=== PATIENT | male | born 1980 | race Caucasian/White ===

== ENCOUNTER 2024-07-25 15:03 | Emergency (ER) | payer MEDICAID, SELFPAY ==
[2024-07-25] VITALS (7 sets, daily range): BP systolic 151–166; BP diastolic 88–104; PULSE 57–77; RESP 14–18; TEMP 36.7–37; O2SAT 96–98; BMI 30.9
--- NOTE | ~2024-07-25 | CT_ITS ---
EXAMINATION: CT ABDOMEN AND PELVIS WITH CONTRAST CLINICAL INFORMATION: Right upper quadrant abdominal wall mass COMPARISON: None TECHNIQUE: Multidetector volumetric imaging was performed from the superior aspect of the liver through the pubic symphysis with intravenous contrast. A total of 85 mL of Omnipaque 350 was utilized for the study. Sagittal and coronal reformatted images were obtained on the technologist's workstation. This CT examination was performed using dose optimization techniques as appropriate, variously including the following: *Automated exposure control *Adjustment of mA and/or kV according to patient size (this includes techniques or standardized protocols for targeted exams where dose is matched to indication/reason for exam; i.e. extremities or head) *Use of iterative reconstruction technique DLP: 615 mGy-cm FINDINGS: LUNG BASES: The visualized lung bases are unremarkable. LIVER, GALLBLADDER, AND BILIARY TREE: The liver is normal in size, shape, and attenuation. A 4 mm cyst is noted in the left lobe of the liver. No concerning solid focal hepatic lesion or biliary ductal dilatation is present. The gallbladder is unremarkable with no evidence of radiopaque gallstones, gallbladder wall thickening, or obvious pericholecystic inflammatory changes. PANCREAS: Unremarkable. SPLEEN: Unremarkable. ADRENAL GLANDS: Unremarkable. KIDNEYS AND URETERS: The kidneys are normal in size, shape, and attenuation. No hydronephrosis, hydroureter, or calculi seen. No perinephric stranding. BLADDER: Unremarkable. GASTROINTESTINAL TRACT: The small and large bowel are unremarkable. The appendix is unremarkable. ABDOMINAL WALL: No significant hernia is appreciated. No abdominal wall mass is seen. LYMPH NODES: Normal. VASCULAR: Unremarkable. PELVIC VISCERA: Minimal prominence of the prostate. Seminal vesicles are normal. OSSEOUS STRUCTURES: Unremarkable. CT/CT abdomen pelvis w IV con IMPRESSION: There is no right upper quadrant abdominal wall mass seen. Fleischner guidelines were followed. Electronically signed by: Dragan Rodriguez MD 07/25/2024 07:30 PM [facility]
--- NOTE | ~2024-07-25 | US_ITS ---
EXAMINATION: US SCROTUM CLINICAL INFORMATION: Right scrotal pain and swelling.. COMPARISON: None available. TECHNIQUE: A sonogram of the scrotum was performed assessing tamez-scale appearance and color Doppler flow. Spectral Doppler analysis of the arterial and venous flow were performed in the testes bilaterally. FINDINGS: RIGHT: Right testicle measures 4.5 x 2.9 x 3.5 cm, volume 23.2 mL. No focal testicular parenchymal lesions are visualized. Spectral Doppler analysis of the arterial and venous flow is normal in the right testis. Right epididymal head is normal in size. A cyst at the epididymal head measures 0.5 x 0.4 x 0.4 cm. No right varicocele is seen. Moderate size simple right hydrocele. Right epididymal Doppler flow is normal. LEFT: Left testicle measures 5.1 x 2.2 x 3.0 cm, volume 17.7 mL. No focal testicular parenchymal lesions are visualized. Spectral Doppler analysis of the arterial and venous flow is normal in the left testis. Left epididymal head is normal in size. No left hydrocele or varicocele is seen. Left epididymal Doppler flow is normal. US/US scrotum IMPRESSION: Normal blood flow in both testicles on color and spectral Doppler. No evidence of orchitis or torsion. Moderate-sized simple right hydrocele. Small 0.5 cm right epididymal head cyst. Electronically signed by: Denis Cao MD 07/25/2024 10:41 PM [facility]
--- NOTE | ~2024-07-25 | XR_ITS ---
EXAMINATION: XR CHEST CLINICAL INFORMATION: cough, fever COMPARISON: None available. TECHNIQUE: 2 views of the chest were obtained. FINDINGS: No significant abnormality is noted involving the heart, lungs, mediastinum, bony thorax or soft tissues. XR/XR chest 2V IMPRESSION: Unremarkable examination. Electronically signed by: Shira Mathews MD 07/25/2024 03:57 PM [facility]
--- NOTE | ~2024-07-25 | US_ITS ---
EXAMINATION: US SCROTUM CLINICAL INFORMATION: Right scrotal pain and swelling.. COMPARISON: None available. TECHNIQUE: A sonogram of the scrotum was performed assessing tamez-scale appearance and color Doppler flow. Spectral Doppler analysis of the arterial and venous flow were performed in the testes bilaterally. FINDINGS: RIGHT: Right testicle measures 4.5 x 2.9 x 3.5 cm, volume 23.2 mL. No focal testicular parenchymal lesions are visualized. Spectral Doppler analysis of the arterial and venous flow is normal in the right testis. Right epididymal head is normal in size. A cyst at the epididymal head measures 0.5 x 0.4 x 0.4 cm. No right varicocele is seen. Moderate size simple right hydrocele. Right epididymal Doppler flow is normal. LEFT: Left testicle measures 5.1 x 2.2 x 3.0 cm, volume 17.7 mL. No focal testicular parenchymal lesions are visualized. Spectral Doppler analysis of the arterial and venous flow is normal in the left testis. Left epididymal head is normal in size. No left hydrocele or varicocele is seen. Left epididymal Doppler flow is normal. US/US scrotum doppler IMPRESSION: Normal blood flow in both testicles on color and spectral Doppler. No evidence of orchitis or torsion. Moderate-sized simple right hydrocele. Small 0.5 cm right epididymal head cyst. Electronically signed by: Denis Cao MD 07/25/2024 10:41 PM [facility]
--- NOTE | 2024-07-25 15:16 | ED.ABDPAIN ---
HPI - Abdominal Pain General Chief Complaint: Upper Respiratory Symptoms Stated Complaint: Abd pain-sick for a few days Time Seen by Provider: 07/25/24 17:28 History of Present Illness ED Provider: Abelino SANCHEZ narrative: The patient is an ordinarily healthy 43-year-old male. He is from [place]. By profession he is a home sales service professional. He is currently touring in this area. The patient has 2 complaints. One complaint is that he has felt ill with respiratory symptoms for about 4 days. He describes a sense of nasal congestion and green nasal discharge together with a cough and fatigue. He does not know if he has had a fever but he says he has been very sweaty at times. Additionally the patient says that he has had a lump that he can feel in his right upper abdomen that comes and goes and is quite painful when it comes. He says he 1st experienced this about 6 months ago. He says that he feels the lump intermittently. It is associated with significant pain and discomfort when it comes. He has spoken to some doctors about it who said it did not sound like a hernia because it does not seem to be associated with straining or lifting. However the patient says that the frequency with which he has the pain in the sense of a lump in his right upper abdomen is increasing so that is now occurring several times a day and interferes with his daily events. The patient later disclosed that he has had a swollen right testicle for several months and that he is worried that he has testicular cancer but has been to anxious to discuss it with the doctor or have it evaluated. The patient lives in [place] and has no primary care doctor. Related Data Previous Rx's ?Medication ?Instructions ?Recorded doxycycline monohydrate 100 mg 100 mg PO BID #14 caps 07/25/24 capsule tramadol 50 mg tablet 50 mg PO Q6H PRN pain #14 tabs 07/25/24 Allergies Allergy/AdvReac Type Severity Reaction Status Date / Time No Known Allergies Allergy Verified 07/25/24 15:17 Review of Systems Review of Systems Yes all other systems are reviewed and are negative [facility] Social History Social History Alcohol intake: current Alcohol intake frequency: a few times a month Smoked in Last 30 Days: No Use of substances other than those prescribed or required for medical reasons: Yes Substance Use Type: Marijuana Substance Use Frequency: Chronic Longstanding Advance Directives: No Advance Directives Information Provided: No Physical Exam ED Vital Signs: Vital Signs - 24 hr 07/25/24 15:13 07/25/24 18:25 07/25/24 18:30 Temperature 98.1 F 98.6 F Pulse Rate 77 71 Respiratory Rate 16 14 Blood Pressure 152/93 H 166/104 H Pulse Oximetry 97 97 96 Oxygen Delivery Method Room Air Room Air Room Air 07/25/24 19:04 07/25/24 20:08 07/25/24 22:24 Temperature 98.3 F 98.6 F 98.4 F Pulse Rate 70 64 57 Respiratory Rate 16 18 Blood Pressure 151/94 H 165/95 H 159/88 H Pulse Oximetry 97 98 Oxygen Delivery Method Room Air 07/25/24 22:56 Temperature 98.4 F Pulse Rate 57 Respiratory Rate 16 Blood Pressure 159/88 H Pulse Oximetry Oxygen Delivery Method BMI result Body Mass Index 30.9 Const Other: The patient is awake and alert. He does not appear obviously ill. HENOK Head: Yes normal to inspection Face and sinus: Yes normal facial exam Mouth: Normal oral and palatal mucosa present and moist mucous membranes Throat: Yes posterior oropharynx normal Eyes General: appearance normal, both eyes and all related structures Neck Neck: Yes no lymphadenopathy Resp Effort & Inspection: normal respiratory effort Auscultation: clear to auscultation bilaterally Cardio Rate: regular rate Rhythm: regular rhythm Heart sounds: S1 normal heart sound present and S2 normal heart sound present GI Other: The abdomen is flat and soft. In the right upper quadrant felt that there was a nodule like mass that seemed to rest against the anterior aspect of the abdominal wall muscles. This felt to be about 2 cm x 1 cm in size. It was soft. I did not appreciate any hernia defect. The abdomen seemed otherwise benign and nontender. Other: The patient has a swollen right hemiscrotum. No particular tenderness. Skin Other: Skin is dry and unremarkable Neuro Other: The patient is awake and alert with a normal mental status. Cranial nerves are intact. He moves his extremities normally. He seems grossly neurologically intact. Extrem Other: No peripheral edema Course Course Course Narrative: This is a rapid medical exam. Defer additional HPI, ROS, PE to primary provider. 43 yo male with no known medical history presents to the ER with cough, fevers, chills, malaise for several days. Also concern for bump on his abdomen that comes and goes and is painful for several months. Will obtain labs, viral testing, chest x-ray ARNOLDO Nunez APRN Medical Decision Making Medical Decision Making [facility] Narrative: The patient initially seemed to have 2 chief complaints. One was respiratory symptoms suggestive of a possible respiratory infection. The 2nd complaint was a painful mass in the right upper abdomen that has been bothering him intermittently for several months and has been getting worse with more frequent episodes of pain. Later the patient also mentioned that he had a swollen right testicle that has been swollen for a few months and which he is very worried could represent cancer. The patient has a negative chest x-ray and unremarkable blood work. With regard to his respiratory symptoms he will prescribed doxycycline for possible sinusitis. With regard to the painful abdominal wall mass in his right upper abdomen a CT scan of the abdomen and pelvis did not identify any discrete mass. With regard to the patient's complaint of a right swollen hemiscrotum he has a hydrocele on the right testicle. Patient was advised to follow up with General surgery regarding the apparent abdominal wall mass which seems palpable to the touch but which was not evident on CT scan. He will likely be following up in [place]. He was given a disc of his CT scan. With regard to his right testicular hydrocele he was reassured he does not seem to have testicular cancer. He is advised to follow up with the urologist when he returns to [place]. In case he stays in this area he was given contact numbers for our General surgery office and our urology office. Lab Data 07/25/24 15:31 07/25/24 15:31 Labs: Lab Results 07/25/24 Range/Units 15:31 WBC 8.4 (4.8-10.8) X10*3/uL RBC 4.92 (4.60-5.80) X10*6/uL Hgb 16.2 (14.0-18.0) g/dl Hct 45.2 (42.0-52.0) % MCV 91.9 (80.0-98.0) fL MCH 32.9 (27.0-33.0) pg MCHC 35.8 (31.0-36.0) g/dl RDW 12.0 (11.0-16.0) % Plt Count 274 (160-400) X10*3/uL MPV 10.7 (9.4-12.4) fL Immature Gran % (Auto) 0.2 (0.0-0.4) % Neut % (Auto) 59.8 (45-73) % Lymph % (Auto) 30.0 (20-40) % Orange % (Auto) 7.6 (2-11) % Eos % (Auto) 1.0 (0-4) % Baso % (Auto) 1.4 (0-2) % Lymph # (Auto) 2.5 (1.2-4.9) X10*3/uL Orange # (Auto) 0.6 (0.1-1.2) X10*3/uL Eos # (Auto) 0.1 (0.0-0.4) X10*3/uL Baso # (Auto) 0.1 (0.0-0.2) X10*3/uL Abs Immat Gran (auto) 0.02 (0.00-0.03) X10*3/uL Absolute Neuts (auto) 5.0 (2.0-8.3) x10*3/uL Absolute Nucleated RBC 0.000 (0.0-0.012) X10*3/uL Nucleated RBC % (auto) 0.0 (0.0-0.2) /100WBC Sodium 139 (135-145) mmol/L Potassium 4.3 (3.3-5.1) mmol/L Chloride 104 (96-108) mmol/L Carbon Dioxide 24 (22-29) mmol/L Anion Gap 15 (12-20) BUN 18 H (9-16) mg/dL Creatinine 1.36 (0.5-1.4) mg/dL Estim Creat Clear Calc 82.1 Estimated GFR 57 Random Glucose 115 (60-115) mg/dL Calcium 10.3 H (8.4-10.2) mg/dL Total Bilirubin 0.8 (0.0-1.0) mg/dL Direct Bilirubin 0.2 (0.0-0.5) mg/dL AST 31 (5-37) U/L ALT 45 H (0-40) U/L Alkaline Phosphatase 111 (39-117) U/L C-Reactive Protein 0.31 (< or = 0.50) mg/dL Total Protein 8.3 H (6.5-8.0) g/dL Albumin 5.0 (3.5-5.0) g/dL Influenza Type A (PCR) NEGATIVE (Negative) Influenza Type B (PCR) NEGATIVE (Negative) RSV RNA Qual (PCR) NEGATIVE (Negative) SARS-CoV-2 RNA (RT-PCR) NEGATIVE (Negative) S. pyogenes GrpA SARITA Negative (Negative) Medications Administered Discontinued Medications Generic Name Dose Route Start Last Admin Trade Name Freq PRN Reason Stop Dose Admin Doxycycline Monohydrate 100 mg 07/25/24 19:51 07/25/24 20:09 Doxycycline Monohydrate 100 Mg Capsule PO 07/25/24 19:52 100 mg ONCE ONE Administration Sodium Chloride 1,000 mls @ 999 mls/hr 07/25/24 18:00 07/25/24 20:36 Ns IV 07/25/24 19:00 Infused .Q1H1M GOKUL Infusion Iohexol 100 ml 07/25/24 18:20 07/25/24 18:20 Iohexol 350 Mg/Ml 100 Ml Infus..Btl IV 07/25/24 18:21 85 ml ONCE ONE Administration Ketorolac Tromethamine 10 mg 07/25/24 19:03 07/25/24 20:15 Ketorolac Tromethamine 15 Mg/Ml Vial IVPUSH 07/25/24 19:04 10 mg ONCE ONE Administration Discharge Plan Discharge Clinical Impression: Acute upper respiratory infection, Abdominal wall mass of right upper quadrant, Hydrocele of testis Patient Disposition: Home, Self-Care Instructions: Hydrocele (ED) Additional Instructions: Your chest x-ray does not show a pneumonia. Your blood testing is also very reassuring from the point of view of a dangerous infection. You may have a case of sinusitis. Therefore you have a prescription for the antibiotic doxycycline which may help. Please take this medication 2 times a day. With regard to the mass in your right upper abdomen the radiologists are not seeing anything on the CT scan to explain what is happening. I think it would be reasonable for you to see a surgeon to discuss this and see if they have any recommendations. You have been given the name and number of the general surgery office here at [facility] and can call them tomorrow to try to get a follow up appointment to discuss the pain and the mass further. Alternatively you can follow up when you get back home to [place]. The ultrasound of your scrotum shows that the swelling in your right testicle is a condition called a hydrocele. This is a simple cyst. If you wish to follow up about this swelling you should see a urologist when you get back to [place]. In addition to the prescription for doxycycline you have a prescription for tramadol, a pain medication which you can try to see if this helps your pain. This medicine can make you drowsy so you should not drive or operate heavy equipment or participate in other activities that require you to be alert. You may also take 2 extra-strength acetaminophen (Tylenol) up to 3 times a day as needed for pain. Please return if you feel significantly worse. Prescriptions: New doxycycline monohydrate 100 mg capsule 100 mg PO BID Qty: 14 0RF tramadol 50 mg tablet 50 mg PO Q6H PRN (Reason: pain) Qty: 14 0RF Referrals: [facility]geons [Provider Group] (abdominal wall mass) [facility] Urology Services [Provider Group] (Right testicular hydrocele) Interventions: ED Discharge Assessment Last Done: 07/25/24 22:56 Discharge Date/Time: 07/25/24 22:57 Print Language: Egyptian
[2024-07-25 15:37] LABS: MANUAL DIFF FLAG NO
[2024-07-25 15:46] LABS: IDNOW Serial# 08D9AD1C; Strep A Nucleic Acid Negative (Negative)
[2024-07-25 15:48] LABS: Basophils Absolute Auto 0.1 X10*3/uL (0.0-0.2); Basophils Percent Auto 1.4 % (0-2); Eosinophils Absolute Auto 0.1 X10*3/uL (0.0-0.4); Hematocrit 45.2 % (42.0-52.0); Hemoglobin 16.2 g/dl (14.0-18.0); Imm Gran Abs Auto 0.02 X10*3/uL (0.00-0.03); Imm Gran Pct Auto 0.2 % (0.0-0.4); Lymphocytes Absolute Auto 2.5 X10*3/uL (1.2-4.9); Mean Corpuscular HGB Conc 35.8 g/dl (31.0-36.0); Mean Corpuscular Hemoglobin 32.9 pg (27.0-33.0); Mean Corpuscular Volume 91.9 fL (80.0-98.0); Mean Platelet Volume 10.7 fL (9.4-12.4); Monocytes Absolute Auto 0.6 X10*3/uL (0.1-1.2); Monocytes Percent Auto 7.6 % (2-11); Neutrophils Percent Auto 59.8 % (45-73); Platelet Count 274 X10*3/uL (160-400); Red Blood Count 4.92 X10*6/uL (4.60-5.80); White Blood Count 8.4 X10*3/uL (4.8-10.8)
[2024-07-25 15:53] LABS: Anion Gap 15 (12-20); Aspartate Amino Transferase 31 U/L (5-37); Bilirubin Direct 0.2 mg/dL (0.0-0.5); Bilirubin Total 0.8 mg/dL (0.0-1.0); Blood Urea Nitrogen 18 mg/dL (9-16); Calcium 10.3 mg/dL (8.4-10.2); Carbon Dioxide 24 mmol/L (22-29); Chloride 104 mmol/L (96-108); Creatinine Clr Calc Pharmacy 82.1; Estimated Glomerular Filt Rate 57; Glucose Random 115 mg/dL (60-115); Potassium 4.3 mmol/L (3.3-5.1); Sodium 139 mmol/L (135-145); Total Protein 8.3 g/dL (6.5-8.0)
[2024-07-25 16:17] LABS: Influenza A PCR NEGATIVE (Negative); Influenza B PCR NEGATIVE (Negative); Resp Syncy Virus RNA Qual PCR NEGATIVE (Negative); SARS COV2 PCR INHOUSE NEGATIVE (Negative)
[2024-07-25 16:30] LABS: Alanine Aminotransferase 45 U/L (0-40); Alkaline Phosphatase 111 U/L (39-117)
[2024-07-25] MEDS: 0.9 % Sodium Chloride 1,000 ML 999 ML IV (18:05)
[2024-07-25] MEDS: iohexoL 350 MG/ML 100 ML INFUS..BTL IV (18:20)
[2024-07-25 18:43] LABS: C Reactive Protein 0.31 mg/dL (< or = 0.50)
[2024-07-25] MEDS: Doxycycline Monohydrate 100 MG CAPSULE PO (20:09)
[2024-07-25] MEDS: Ketorolac Tromethamine 15 MG/ML VIAL 10 MG IVPUSH (20:15)
== END 2024-07-25 22:57 | disposition home or self-care (01) ==
PROVIDERS: Nurse Practitioner Family; Emergency Provider Emergency Medicine
DX: J06.9 Acute upper respiratory infection, unspecified (principal); N43.3 Hydrocele, unspecified; R19.01 Right upper quadrant abdominal swelling, mass and lump; R10.11 Right upper quadrant pain; R09.81 Nasal congestion; R05.9 Cough, unspecified; R50.9 Fever, unspecified; R53.83 Other fatigue; R10.2 Pelvic and perineal pain; R11.0 Nausea; N50.89 Other specified disorders of the male genital organs; Z03.818 Encounter for observation for suspected exposure to other biological agents ruled out; Z79.899 Other long term (current) drug therapy
CPT/HCPCS: 0241U; 71046; 74177; 76870; 80048; 80076; 85025; 86140; 87651; 93975; 96361; 96374; 99284; 99285; J1885; Q9967